=== PATIENT | male | born 1995 | race African-American/Black ===

== ENCOUNTER 2023-12-17 00:37 | Emergency (ER) | payer OTHER ==
[~2023-12-17] VITALS: Ht 195.6 cm; Wt 86.2 kg
[2023-12-17 00:52] VITALS: O2SAT 98
== END 2023-12-17 02:03 | disposition home or self-care (01) ==
LOC: ER 00:50
DX: R06.02 Shortness of breath (principal); T40.411A Poisoning by fentanyl or fentanyl analogs, accidental (unintentional), initial encounter; R46.4 Slowness and poor responsiveness; Z98.890 Other specified postprocedural states; Y92.89 Other specified places as the place of occurrence of the external cause
CPT/HCPCS: A4606; A4663

== ENCOUNTER 2024-01-17 20:42 | Emergency (ER) | payer OTHER ==
[~2024-01-17] VITALS: Ht 195.6 cm; Wt 86.2 kg
[2024-01-17] MEDS ORDERED: ONDANSETRON 4 MG/2 ML VIAL ONE (21:11)
[2024-01-17] MEDS ORDERED: KETOROLAC TROMETHAMINE 30 MG INJ ONE (21:11)
[2024-01-17] MEDS ORDERED: ACETAMINOPHEN ES 500 MG TABLET ONE (21:11)
[2024-01-17] MEDS: ONDANSETRON 4 MG/2 ML VIAL IV ONE (21:16)
[2024-01-17] MEDS: ACETAMINOPHEN ES 500 MG TABLET PO ONE (21:17)
[2024-01-17] MEDS: KETOROLAC TROMETHAMINE 30 MG INJ IVP ONE (21:17)
[2024-01-17] MEDS ORDERED: NALOXONE HCL 0.4 MG/ML AMPUL ONE ×2 (21:26→21:45)
[2024-01-17] MEDS: NALOXONE HCL 0.4 MG/ML AMPUL IV ONE ×2 (21:28→21:47)
[2024-01-17 21:38] LABS: BASOPHILS # (AUTO) 0.3 K/UL (0.0-0.2); BASOPHILS % (AUTO) 2.6 % (0.0-2.0); EOSINOPHILS # (AUTO) 0.1 K/uL (0.0-0.7); EOSINOPHILS % (AUTO) 0.7 % (0.0-7.0); HEMATOCRIT 32.9 % (36.7-47.1); HEMOGLOBIN 11.1 g/dL (12.5-16.3); LYMPHOCYTES # (AUTO) 0.5 K/uL (0.8-4.8); LYMPHOCYTES % (AUTO) 5.1 % (20.5-51.5); MEAN CORPUSCULAR HEMOGLOBIN 29.6 uug (23.8-33.4); MEAN CORPUSCULAR HGB CONC 34 g/dL (32.5-36.3); MEAN CORPUSCULAR VOLUME 87.7 fL (73.0-96.2); MONOCYTES # (AUTO) 0.4 K/uL (0.1-1.30); NEUTROPHILS # (AUTO) 8.5 K/uL (1.8-8.9); NEUTROPHILS % (AUTO) 87.6 % (38.5-71.5); PLATELET COUNT (AUTO) 183 K/uL (152-348); RED BLOOD CELL COUNT(AUTO) 3.76 MIL/uL (4.06-5.63); RED CELL DISTRIBUTION WIDTH 14.2 % (12.1-16.2); WHITE BLOOD COUNT (AUTO) 9.7 K/uL (3.6-10.2)
[2024-01-17 21:42] LABS: DIFFERENTIAL COMMENT 1
[2024-01-17 21:47] LABS: CALCIUM 9.7 mg/dL (8.5-10.1); CARBON DIOXIDE 26 mmol/L (21-32); CHLORIDE 97 mmol/L (98-107); CREATININE 1.2 mg/dL (0.6-1.3); GLUCOSE 109 mg/dL (74-106); SODIUM SERUM 125 mmol/L (136-145); UREA NITROGEN, BLOOD 28 mg/dL (7-18)
[2024-01-17 21:52] LABS: ETHANOL < 3 MG/DL (0-10)
[2024-01-17 21:53] LABS: ALANINE AMINOTRANSFERASE 32 U/L (16-63); ALBUMIN 4.6 g/dL (3.4-5.0); ALKALINE PHOSPHATASE 69 U/L (50-136); ASPARTATE AMINOTRANSFERASE 55 U/L (15-37); BILIRUBIN,TOTAL 1.2 mg/dL (0.2-1.0); TOTAL PROTEIN, SERUM 8.6 g/dL (6.4-8.2)
[2024-01-17] MEDS ORDERED: MISCELLANEOUS MED XX ONE ×2 (23:00)
[2024-01-17] MEDS ORDERED: NALOXONE 2 MG/2 ML SYRINGE ONE (23:09)
[2024-01-18] MEDS ORDERED: NALOXONE 2 MG/2 ML SYRINGE ONE (01:29)
[2024-01-18] MEDS: NALOXONE HCL IV SCH (01:30)
[2024-01-18] MEDS: SODIUM CHLORIDE 3% IV SCH (01:30)
[2024-01-18] MEDS: NALOXONE HCL 0.4 MG/ML AMPUL IV ONE (01:37)
[2024-01-18 02:04] VITALS: BP 103/66; O2SAT 97
[2024-01-18] MEDS ORDERED: [UNRECOGNIZED DRUG - OTHER] IV SCH (02:15)
[2024-01-18] MEDS ORDERED: NALOXONE HCL IV SCH (02:15)
[2024-01-18] MEDS ORDERED: NALOXONE HCL IV ONE (02:30)
[2024-01-18] MEDS ORDERED: DEXTROSE 5% IV ONE (02:30)
== END 2024-01-18 02:20 | disposition left against medical advice (07) ==
LOC: ER 20:44
DX: J96.90 Respiratory failure, unspecified, unspecified whether with hypoxia or hypercapnia (principal); T40.2X1A Poisoning by other opioids, accidental (unintentional), initial encounter; F31.9 Bipolar disorder, unspecified; F41.9 Anxiety disorder, unspecified; Z98.890 Other specified postprocedural states; Y92.89 Other specified places as the place of occurrence of the external cause
CPT/HCPCS: 80053; 85025; 36415; 99291; 96375 ×2; 80320; 71045; 70450; 96365; 96376; J1885; J2310 ×4; J2405; J7060; A4606; A4663; A9150; G0480